=== PATIENT | male | born 1945 | race Caucasian/White ===

== ENCOUNTER → 2016-12-28 | Outpatient (REF) | payer MEDICARE ==
[~2016-12-28] MED LIST: AMLO10TA2 PO; ASPI1TAB PO; ATOR40TA75 PO; CALC1CAP31 PO; FURO40TA2 PO; GLIM4TAB PO; INSUHUMDS SC; INSULANT SC; METO-398 PO; SPIR25TA2 PO; ULOR80TA PO
== END ==
LOC: M LAB REF 13:53
PROVIDERS: ATTEND Family Medicine
DX: E78.5 Hyperlipidemia, unspecified (principal)